=== PATIENT | female | born 1980 | race African-American/Black ===

== ENCOUNTER → 2018-03-02 | Outpatient (CLI) | payer BC, OTHER ==
[~2018-03-02] MED LIST: CALC500T93 PO; CYAN10005 PO
== END | disposition home or self-care (01) ==
LOC: STAR 10:29 → MERGE 10:30
PROVIDERS: ATTEND Surgery
DX: Z02.9 Encounter for administrative examinations, unspecified (principal)

== ENCOUNTER 2018-03-11 05:37 | Day surgery (SDC) | payer BC, OTHER ==
[2018-03-02 13:44] VITALS: BP 152/89
[~2018-03-11] VITALS: Ht 175.3 cm; Wt 89.0 kg
[2018-03-11] MEDS ORDERED: LACTATED RINGERS 1,000 ML IV SCH (06:38)
[2018-03-11 06:55] LABS: HCG UR SG 1.019 (1.003-1.030)
[2018-03-11] MEDS ORDERED: BUPIVACAINE 0.25% ONE (07:02)
[2018-03-11] MEDS ORDERED: EPINEPHRINE 1 MG/ML, 1ML ONE (07:02)
[2018-03-11] MEDS ORDERED: FENTANYL PF 100 MCG/2ML ONE (07:11)
[2018-03-11] MEDS ORDERED: MIDAZOLAM 1 MG/ML, 2ML ONE (07:11)
[2018-03-11] MEDS ORDERED: BUPIVACAINE/PF-EPI 0.5% 1:200K ONE (07:43)
[2018-03-11] MEDS ORDERED: MEPERIDINE/PF 25MG/0.5ML IVPush PRN (08:30)
[2018-03-11] MEDS ORDERED: ALBUTEROL SULFATE 2.5 MG/3 ML NPPB PRN (08:30)
[2018-03-11] MEDS ORDERED: FENTANYL PF 100 MCG/2ML IV PRN (08:30)
[2018-03-11] MEDS ORDERED: LORazepam 2 MG/ML, 1ML IVPush PRN (08:30)
[2018-03-11] MEDS ORDERED: HYDROmorphone 1 MG/ML, 1ML IV PRN (08:30)
[2018-03-11] MEDS ORDERED: OXYcodone 5 MG/5 ML ORAL.SOL UDC PO PRN (08:30)
[2018-03-11] MEDS ORDERED: LABETALOL 5MG/ML, 20ML IV PRN (08:30)
[2018-03-11] MEDS ORDERED: hydrALAzine 20 MG/ML, 1ML IV PRN (08:30)
[2018-03-11] MEDS ORDERED: ACETAMINOPHEN 325 MG TABLET PO PRN (08:30)
[2018-03-11] MEDS ORDERED: ALBUTEROL SULFATE 2.5 MG/3 ML ONE (09:10)
[2018-03-11] MEDS ORDERED: LORazepam 2 MG/ML, 1ML ONE (09:17)
[2018-03-11] MEDS ORDERED: OXYcodone 5 MG/5 ML ORAL.SOL UDC ONE (10:07)
[2018-03-11] MEDS ORDERED: SUCCINYLCHOLINE 20 MG/ML, 10ML ONE (15:55)
[2018-03-11] MEDS ORDERED: DEXAMETHASONE 4 MG/ML, 1ML ONE (15:55)
[2018-03-11] MEDS ORDERED: CEFAZOLIN 1,000 MG ONE (15:55)
[2018-03-11] MEDS ORDERED: PROPOFOL 10 MG/ML, 20ML ONE (15:55)
[2018-03-11] MEDS ORDERED: ONDANSETRON 2MG/ML, 2ML ONE (15:55)
== END 2018-03-11 12:10 | disposition home or self-care (01) ==
LOC: OUT 05:37 → MERGE 07:30 → OUT 12:10
PROVIDERS: ATTEND Surgery
DX: L72.8 Other follicular cysts of the skin and subcutaneous tissue (principal); Z72.89 Other problems related to lifestyle; Z88.1 Allergy status to other antibiotic agents; Z88.0 Allergy status to penicillin
CPT/HCPCS: 11422; 81025; 88305; 94640; J0330; J0690; J1100; J2060; J2250; J2405; J2704; J3010; J7120; J7613; J0171; J3490